=== PATIENT | male | born 1970 | race African-American/Black ===

== ENCOUNTER → 2018-08-13 | Outpatient (CLI) | payer BC ==
--- NOTE | 2018-08-13 14:22 | PCVCIMAG ---
EXAM: BILATERAL SUPERFICIAL VENOUS DUPLEX INDICATION: Leg pain and swelling. No right leg DVT. FINDINGS: Right leg: Moderate nonocclusive thrombus throughout the common femoral and mid/upper main femoral veins. The lower main femoral vein and popliteal vein are patent. Incidental note is made of venous insufficiency/reflux in the right popliteal vein with reflux duration of 1.6 seconds. Right Great Saphenous Vein: At the saphenofemoral junction the diameter is 8.0 mm, in the mid thigh it is 10.3 mm, and in the calf it is 7.3 mm. There is not significant venous insufficiency/reflux throughout. Venous insufficiency/reflux duration is 0 seconds. Right Small Saphenous Vein: At the saphenopopliteal junction the diameter is 4.7 mm, and in the calf it is 6.1 mm. There is significant venous insufficiency/reflux at the level of the upper calf. Venous insufficiency/reflux duration is 2.8 seconds. There is a cranial extension present. Left leg: No thrombus in the common femoral, main femoral, or popliteal veins. These veins are compressible. Venous insufficiency/reflux throughout the main femoral and popliteal veins with reflux duration of 2.3 seconds. Left Great Saphenous Vein: At the saphenofemoral junction the diameter is 7.3 mm, in the mid thigh it is 6.3 mm, and in the calf it is 3.1 mm. There is not significant venous insufficiency/reflux throughout. Venous insufficiency/reflux duration is 0 seconds. Left Small Saphenous Vein: At the saphenopopliteal junction the diameter is 5.2 mm, and in the calf it is 7.3 mm. There is not significant venous insufficiency/reflux throughout. Venous insufficiency/reflux duration is 0.2 seconds. There is not a cranial extension present. IMPRESSION: Right Great Saphenous Vein: No significant venous insufficiency/reflux is present as noted above. Right Small Saphenous Vein: Significant venous insufficiency/reflux is present as noted above seen in the upper calf only. Left Great Saphenous Vein: No significant venous insufficiency/reflux is present as noted above. Left Small Saphenous Vein: No significant venous insufficiency/reflux is present as noted above. Incidental note is made of moderate nonocclusive thrombus throughout the right common and mid/upper main femoral veins. No prior study available for comparison but by report this has been previously noted. Incidental note is made of significant venous insufficiency/reflux in the right popliteal vein and throughout the left main femoral and left popliteal vein. LOC:[place] [id number]
== END | disposition home or self-care (01) ==
LOC: PCVCIMAG 10:45
PROVIDERS: ATTEND Family Medicine
DX: I87.2 Venous insufficiency (chronic) (peripheral) (principal); M79.89 Other specified soft tissue disorders
CPT/HCPCS: 93970